=== PATIENT | female | born 1995 | race Caucasian/White ===

== ENCOUNTER 2019-08-01 10:13 | Emergency (ER) | payer BC, OTHER, SELFPAY ==
[2019-08-01 10:29] VITALS: BP 147/83; PULSE 92; RESP 18; TEMP 36.9; O2SAT 99
--- NOTE | 2019-08-01 10:47 | ED.GENADULT ---
HPI - General Adult General Chief complaint: Upper Respiratory Infection Stated complaint: Sore throat Time Seen by Provider: 08/01/19 10:47 Source: patient Mode of arrival: ambulatory Limitations: no limitations History of Present Illness HPI narrative: 23-year-old female patient presents to the [facility] with complaints of sore throat x5 days. Patient states that she has had pain with swallowing. Patient denies any fevers but states she has been taking some baby aspirin for the pain. Denies any runny nose that she is aware of. Patient states that she does feel like sometimes that she has some drainage to the back of her throat. Patient states she has had a slight dry cough. Denies any chest pain or shortness of breath. Denies any abdominal pain, nausea, vomiting or diarrhea. Denies any current at this time. Related Data Home Medications Medication Instructions Recorded Confirmed acyclovir 400 mg PO BID PRN 08/01/19 08/01/19 norethindrone-e.estradiol-iron 1 tablet PO DAILY 08/01/19 08/01/19 [Microgestin FE 05/08 (28)] Allergies Allergy/AdvReac Type Severity Reaction Status Date / Time No Known Allergies Allergy Verified 08/01/19 10:30 Review of Systems Review of Systems: Narrative: CONSTITUTIONAL: Denies fever, chills, or sweats. EYES: Denies visual changes, redness, or discharge. ENT: deneis rhinorrhea, congestion, positive sore throat, deneis otalgia. CARDIOVASCULAR: Denies chest pain, palpitations, or edema. RESPIRATORY: Denies cough or dyspnea. GASTROINTESTINAL: Denies abdominal pain, nausea, vomiting, or diarrhea. GENITOURINARY: Denies dysuria or hematuria. SKIN: Denies rash or itching. MUSCULOSKELETAL: Denies back pain, joint pain, or myalgia. NEUROLOGIC: Denies headache, numbness, or weakness. PSYCHIATRIC: Denies anxiety or depression. PMFSH Comments At the time of my signature I agree with nursing past medical history, surgical, social, and family history. There is no relevant family history pertinent to the presenting complaint. Exam Narrative: Exam Narrative: GENERAL: Well-appearing, well-nourished, and in no acute distress. HEAD: Normocephalic, atraumatic. EYES: PERRLA and EOMI. ENT: Nares With erythema and edema bilaterally, no active rhinorrhea or epistaxis. Mucous membranes moist.Posterior pharynx with some erythema and 2+ tonsil enlargement. No exudates or lesions present. There is some fluid noted behind bilateral TMs are not examined. NECK: Supple. No lymphadenopathy CHEST: Clear to auscultation. No respiratory distress. HEART: Regular rate and rhythm. No murmur heard. Normal peripheral pulses. ABDOMEN: Soft, nontender, nondistended, normal active bowel sounds. EXTREMITIES: Normal range of motion. No edema. SKIN: Warm, dry, no rash. NEURO: No focal deficits. Alert and oriented x3. Course Vital Signs Vital signs: Vital Signs Temperature 36.9 C 08/01/19 10:29 Pulse Rate 92 08/01/19 10:29 Respiratory Rate 18 08/01/19 10:29 Blood Pressure 147/83 H 08/01/19 10:29 Pulse Oximetry 99 08/01/19 10:29 Temperature 36.9 C 08/01/19 10:29 Pulse Rate 92 08/01/19 10:29 Respiratory Rate 18 08/01/19 10:29 Blood Pressure 147/83 H 08/01/19 10:29 Pulse Oximetry 99 08/01/19 10:29 Vital signs reviewed The patient has been informed that they may have pre-hypertension or Hypertension based on a BP reading in the department. I recommend that the patient call the primary care provider listed on their discharge instructions or a physician of their choice this week to arrange follow up for further evaluation of possible pre-hypertension or Hypertension Medical Decision Making Differential Diagnosis Differential Diagnosis: Differential diagnosis: Viral pharyngitis, pharyngitis, group A strep, infectious mononucleosis, gonococcal pharyngitis, exudative pharyngitis, oral candidiasis. Chronic allergies, postnasal drip, GERD, abscess formation, but glottitis, retropha
== END 2019-08-01 11:00 | disposition home or self-care (01) ==
PROVIDERS: Emergency Provider Nurse Practitioner Family
DX: H93.8X3 Other specified disorders of ear, bilateral (principal); J02.9 Acute pharyngitis, unspecified; J30.2 Other seasonal allergic rhinitis
CPT/HCPCS: 87081; 87880; 99213; G0463

== ENCOUNTER 2021-01-30 10:00 | Emergency (ER) | payer BC, MEDICAID, SELFPAY ==
[2021-01-30 10:06] VITALS: BP 133/82; PULSE 95; RESP 20; TEMP 36.8; O2SAT 100
--- NOTE | 2021-01-30 10:12 | ED.SKABFB ---
HPI - Skin/Abscess/Foreign Bdy General Chief complaint: Skin/Abscess/Foreign Body Stated complaint: spider bites Time Seen by Provider: 01/30/21 10:10 Source: patient and RN notes reviewed Mode of arrival: ambulatory Limitations: no limitations History of Present Illness HPI narrative: 25-year-old female presents to the [facility] with complaints of bites to bilateral arms after camping in a cabin on Wednesday and Wednesday. Red raised areas without signs of infection. No fevers. Has been scratching bug bites with multiple areas of scabbing noted. Related Data Home Medications Medication Instructions Recorded Confirmed sertraline mg 01/30/21 01/30/21 Allergies Allergy/AdvReac Type Severity Reaction Status Date / Time No Known Allergies Allergy Verified 08/01/19 10:30 Review of Systems Review of Systems: All systems reviewed & are unremarkable except as noted in HPI and below Constitutional: Constitutional: Reports no additional constitutional complaints, Denies chills and Denies fever(s) Eyes: Eyes: Reports no additional eye complaints ENT: Reports system reviewed and no additional complaints, except as documented Cardiovascular: Cardiovascular: Reports no additional cardiovascular complaints and Denies chest pain Respiratory: Respiratory: Reports no additional respiratory complaints, Denies cough and Denies dyspnea Gastrointestinal: Gastrointestinal: Reports no additional gastrointestinal complaints and Denies abdominal pain Musculoskeletal: Musculoskeletal: Reports no additional musculoskeletal complaints Integumentary/Breasts: Skin/Breast: Reports as per HPI Comments: Multiple insect bites bilateral arms, right ear, left ring finger Neurologic: Reports system reviewed and no additional complaints, except as documented Psychiatric: Psychiatric: Reports no additional psychiatric complaints Allergic/Immunologic: Allergic/Immunologic: Reports no additional allergic/immunologic complaints [facility] Past Medical History Medical History Anxiety and depression Surgical History Surgical History (Updated 01/30/21 @ 18:06 by Shi Hunt) No significant past surgical history Social History Social History (Updated 01/30/21 @ 18:06 by Shi Hunt) Living arrangements: with family Gender identity (if verbalized by the patient): Female Comments At the time of my signature, I reviewed and agree with the nursing past medical, surgical, social, and family history. There is no relevant family history pertinent to the patient complaint. Exam Const: General: healthy appearing, no acute distress and alert Nutritional Appearance: obese Orientation/consciousness: patient oriented x3 HENMT: Head: normal to inspection Eyes: Pupils: Equal, round and reactive pupils present Neck: Neck: normal visual inspection, no lymphadenopathy and no meningeal signs Chest: Chest palpation & inspection: normal inspection of the chest Resp: Effort & Inspection: normal respiratory effort Auscultation: clear to auscultation bilaterally Cardio: Rate: regular rate Rhythm: regular rhythm : General: Yes no CVA tenderness Back/Spine/Pelvis: Back: no CVA tenderness Skin: General skin exam: normal color Other: Multiple insect bites bilateral arms, right ear, left ring finger all are pink, mildly raised. Patient describes as itching. No signs of significant infection Neuro: General: patient oriented x3, moves all extremities, no meningeal signs and no focal motor deficits Cranial nerves: Yes Nystagmus not present Speech: normal speech Gait exam (Neuro): Normal gait present Extrem: General: normal to inspection and no pedal edema Psych: Appearance: grossly normal and well kempt Mental Status: mental status grossly normal Affect: normal affect Attitude: cooperative Thought content: Yes Normal thought content present Course Course Emergency Course: Discharge instr
== END 2021-01-30 10:30 | disposition home or self-care (01) ==
PROVIDERS: Emergency Provider Nurse Practitioner
DX: S40.862A Insect bite (nonvenomous) of left upper arm, initial encounter (principal); S40.861A Insect bite (nonvenomous) of right upper arm, initial encounter; S00.461A Insect bite (nonvenomous) of right ear, initial encounter; S60.465A Insect bite (nonvenomous) of left ring finger, initial encounter; W57.XXXA Bitten or stung by nonvenomous insect and other nonvenomous arthropods, initial encounter; F41.9 Anxiety disorder, unspecified; F32.A Depression, unspecified
CPT/HCPCS: 99213; G0463

== ENCOUNTER 2023-02-25 10:29 | Emergency (ER) | payer BC, MEDICAID, SELFPAY ==
--- NOTE | ~2023-02-25 | XR_ITS ---
Right Shoulder Technique: AP and scapular Y views were obtained. Clinical History: Pain Findings: No fracture or dislocation is seen. Osseous alignment is anatomic. The glenohumeral and acr omioclavicular joint spaces are preserved. Soft tissues are unremarkable. Impression: Unremarkable right shoulder radiographs. Reviewed, dictated and finalized at [facility]. RANCE REPRESENTATIVE Impression: Unremarkable right shoulder radiographs.
--- NOTE | 2023-02-25 10:34 | ED.UPPEXIN ---
HPI - Extremity Injury (Upper) General Chief Complaint: Extremity Injury, Upper Stated Complaint: Right Shoulder Pain Time Seen by Provider: 02/25/23 10:36 Source: patient Mode of arrival: ambulatory Limitations: no limitations History of Present Illness HPI narrative: Aurora is a 27-year-old female patient presenting to the clinic today with complaints of right shoulder pain that has been coming gradually worse over the last 4 days. She reports full last 2 years she has had some discomfort in her shoulder and she is usually able to pop her shoulder and feel relief. Related Data Home Medications Medication Instructions Recorded Confirmed No Home Medications 02/25/23 02/25/23 Allergies Allergy/AdvReac Type Severity Reaction Status Date / Time No Known Allergies Allergy Verified 02/25/23 10:43 Review of Systems Review of Systems: Pertinent positives per HPI. Patient denies any fever, chills, rash, headache, visual changes, dizziness, cough, runny nose, sore throat, shortness of breath, chest pain, palpitations, nausea, vomiting, diarrhea, constipation, abdominal pain, or any urinary issues. PMFSH Past Medical History Medical History Anxiety and depression Surgical History Surgical History No significant past surgical history Social History Social History Living arrangements: with family Gender identity (if verbalized by the patient): Female Comments At the time of my signature, I reviewed and agree with the nursing past medical, surgical, social, and family history. There is no relevant family history pertinent to the patient complaint. Exam Narrative: General: Well-developed, well nourished, in no apparent distress Head: Normocephalic, atraumatic. Cardio: Regular rate and rhythm, s1 and s2 normal, no murmur appreciated. Resp: Clear to auscultation bilaterally, no rhonchi, rales, wheezing or rubs. Musculoskeletal: No deformity, tender to palpation over the anterior and posterior shoulder, pain with empty can and full can testing, unable to lift right shoulder above head without significant pain, positive Ma test, grossly normal range of motion, muscle strength strong and equal, peripheral pulse strong, no edema, no cyanosis, normal gait and station Course Course Emergency Course: Portions of this record may have been created with voice recognition software. Level of Care: Express Care Visit Vital Signs Vital signs: Vital signs reviewed MDM - Extremity Injury (Upper) MDM Narrative Medical decision making narrative: At the time of visit patient is resting comfortably on the exam table. Right shoulder x-ray was performed and was negative for any sign of fracture or malalignment. I suspect patient has right shoulder strain. Supportive measures were discussed with the patient she voiced understanding discharge instructions and agrees to treatment plan. Differential Diagnosis Differential diagnosis: Likely dislocation of shoulder and other (Shoulder strain, shoulder contusion, clavicle fracture, humeral fracture, AC separation) Imaging Data Radiologist's impression: ITS Impressions Shoulder X-Ray 02/25/23 11:06 Impression: Unremarkable right shoulder radiographs. Discharge Plan Discharge Clinical Impression: Strain of right shoulder Qualifiers: Encounter type: initial encounter Qualified Code(s): S46.911A - Strain of unspecified muscle, fascia and tendon at shoulder and upper arm level, right arm, initial encounter Patient Disposition: Home, Self-Care Condition: Stable Instructions: Antibiotic Form, Shoulder Sprain (ED) Additional Instructions: X-ray of the right shoulder was performed and is negative for any sign of fracture or malalignment. I suspect patient has a r
[2023-02-25 10:37] VITALS: BP 129/86; PULSE 79; RESP 16; TEMP 36.8; O2SAT 98
== END 2023-02-25 11:16 | disposition home or self-care (01) ==
PROVIDERS: Emergency Provider Nurse Practitioner Family
DX: S46.911A Strain of unspecified muscle, fascia and tendon at shoulder and upper arm level, right arm, initial encounter (principal); X58.XXXA Exposure to other specified factors, initial encounter
CPT/HCPCS: 73030; 99213; A4565; G0463

== ENCOUNTER 2023-07-12 11:47 | Emergency (ER) | payer BC, MEDICAID, SELFPAY ==
[2023-07-12 11:57] VITALS: BP 143/92; PULSE 112; RESP 18; TEMP 36.7; O2SAT 96
--- NOTE | 2023-07-12 11:59 | ED.URI ---
HPI - URI/Sore Throat General Chief Complaint: Upper Respiratory Infection Stated Complaint: Sore Throat History of Present Illness HPI Narrative: 27 y/o female presented for c/o sore throat, x3 weeks. States at onset the pain was severe, with painful swallow. Endorses the pain is not as severe but tonsils have been getting bigger in size over the past few weeks. Endorses at times trouble swallowing solid foods but is able to maintain her secretions. Denies wheezing or difficulty talking at this time. Taking ibuprofen, tylenol. Denies headache, cough, n/v/d/f/c. Related Data Allergies Allergy/AdvReac Type Severity Reaction Status Date / Time No Known Allergies Allergy Verified 02/25/23 10:43 Review of Systems Review of Systems: CONSTITUTIONAL: Denies body aches, fever, chills, or sweats. EYES: Denies visual changes, redness, or discharge. ENT: reports sore throat Denies rhinorrhea, congestion, or otalgia. CARDIOVASCULAR: Denies chest pain, palpitations, or edema. RESPIRATORY: Denies dyspnea. GASTROINTESTINAL: Denies abdominal pain, nausea, vomiting, or diarrhea. SKIN: Denies rash, itching, or wounds. MUSCULOSKELETAL: Denies back pain, joint pain, or myalgia. NEUROLOGIC: Denies headache PMFSH Past Medical History Medical History Anxiety and depression Surgical History Surgical History No significant past surgical history Social History Social History Living arrangements: with family Gender identity (if verbalized by the patient): Female Exam Narrative: GENERAL: well-appearing, no acute distress. EYES: conjunctivae clear ENT: Mucous membranes moist. TMs pearly fajardo with normal light reflex bilaterally; no tragal tenderness. Oropharynx erythematous with Tonsils enlarged 3+ symmetrical, with exudate. No drooling, no hoarseness, no trismus, uvula midline. No tripod positioning, hot potato voice, or soft palate swelling. NECK: Supple. No lymphadenopathy, no induration below mandible. CHEST: Clear to auscultation, breath sounds equal. No respiratory distress, speaks in full sentences. HEART: Regular rate and rhythm. No murmur heard. SKIN: Warm, dry, no rash. NEURO: Alert and oriented x3. Course Course Emergency Course: Patient is aware of diagnosis, understands and agrees to treatment plan. Anticipatory guidance given. Patient agrees to follow-up as directed and is aware of reasons to seek care at the emergency department. Portions of this record may have been created with voice recognition software Level of Care: Express Care Visit Vital Signs Vital signs: Vital Signs Temperature 98.0 F 07/12/23 11:57 Pulse Rate 112 H 07/12/23 11:57 Respiratory Rate 18 07/12/23 11:57 Blood Pressure 143/92 H 07/12/23 11:57 Pulse Oximetry 96 07/12/23 11:57 Oxygen Delivery Room Air 07/12/23 11:57 Temperature 98.0 F 07/12/23 11:57 Pulse Rate 112 H 07/12/23 11:57 Respiratory Rate 18 07/12/23 11:57 Blood Pressure 143/92 H 07/12/23 11:57 Pulse Oximetry 96 07/12/23 11:57 Oxygen Delivery Room Air 07/12/23 11:57 MDM - URI/Sore Throat MDM Narrative Medical decision making narrative: POS strep result reviewed with pt. IM SoluMedrol given for tonsillitis. Nontoxic appearance. Patient appears euvolemic, no trismus or airway compromise. Able to tolerate PO. Given History and Exam I have low suspicion for peritonsillar abscess, retropharyngeal abscess, Ludwigs, Epiglottitis or Bacterial Tracheitis, EBV. Discussed at length s/s to go to the ER. Advise supportive treatments. Patient is appropriate for outpatient treatment and follow-up. Differential Diagnosis Differential diagnosis: Likely upper respiratory infection, viral infection, influenza and pharyngitis Discharge Plan Discharge Clinical Impression:
[2023-07-12] MEDS: methylPREDNISolone SOD SUCC 125 MG VIAL IM (12:15)
== END 2023-07-12 12:35 | disposition home or self-care (01) ==
PROVIDERS: Emergency Provider Nurse Practitioner Family
DX: J02.0 Streptococcal pharyngitis (principal)
CPT/HCPCS: 87880; 96372; 99213; G0463; J2930

== ENCOUNTER 2024-10-04 16:31 | Emergency (ER) | payer BC, MEDICAID, SELFPAY ==
--- NOTE | ~2024-10-04 | XR_ITS ---
HISTORY: medial pain/ swelling x10 days. no injury COMPARISON: None TECHNIQUE: 3 views of the right ankle were performed FINDINGS: No acute fracture or dislocation. Anteromedial soft tissue swelling The ankle mortise is preserved. Bone mineralization is age-appropriate. IMPRESSION: Anteromedial soft tissue swelling without acute fracture or dislocation. Given the lack of plain film findings, would recommend MRI examination of the right ankle for further evaluation. Reviewed, dictated and finalized at location A. IMPRESSION: Anteromedial soft tissue swelling without acute fracture or disloc ation. Given the lack of plain film findings, would recommend MRI examination of the r ight ankle for further evaluation.
[2024-10-04 16:44] VITALS: BP 147/100; PULSE 105; RESP 20; TEMP 36.6; O2SAT 99
--- NOTE | 2024-10-04 17:03 | ED.LOWEXIN ---
HPI - Extremity Injury (Lower) General Chief Complaint: Extremity Injury, Lower Stated Complaint: Right Ankle Injury Time Seen by Provider: 10/04/24 16:58 Source: patient and RN notes reviewed Mode of arrival: ambulatory Limitations: no limitations History of Present Illness HPI Narrative: Patient presents today with a 10 day history of right medial ankle pain and swelling. States she woke up with this pain from sleep. Denies injury or trauma. Currently rates her pain 5/10 which radiates to the posterior calf. She has tried ibuprofen and ice as well as an ankle brace without relief. Pain increases with movement and weight-bearing. Denies any recent travel, immobilization, surgeries. Denies history of PE or DVT. Related Data Home Medications ?Medication ?Instructions ?Recorded ?Confirmed ?Last Taken ?Type No Home Medications 10/04/24 10/04/24 Unknown History Allergies Allergy/AdvReac Type Severity Reaction Status Date / Time No Known Allergies Allergy Verified 10/04/24 16:44 Review of Systems Review of Systems: CONSTITUTIONAL: Denies body aches, fever, chills, or sweats. EYES: Denies visual changes, redness, or discharge. ENT: Denies rhinorrhea, congestion, sore throat, or otalgia. CARDIOVASCULAR: Denies chest pain, palpitations, or edema. RESPIRATORY: Denies cough or dyspnea. GASTROINTESTINAL: Denies abdominal pain, nausea, vomiting, or diarrhea. GENITOURINARY: Denies dysuria or hematuria. SKIN: Denies rash, itching, or wounds. MUSCULOSKELETAL: + right ankle pain and swelling NEUROLOGIC: Denies headache, numbness, tingling, or weakness. PSYCH: Denies depression or anxiety. [facility] Past Medical History Medical History Anxiety and depression Surgical History Surgical History No significant past surgical history Social History Social History Living arrangements: with family Gender identity (if verbalized by the patient): Female Comments At time of signature, I have reviewed and agree with nursing past medical, surgical, social and family history unless otherwise noted. Please see nursing chart for further information. There is no relevant family history pertinent to the presenting complaint Exam Narrative: GENERAL: Well-appearing, well-nourished, and in no acute distress. HEAD: Normocephalic, atraumatic. EYES: EOMI. No redness or drainage. Conjunctivae normal. ENT: Mucous membranes pink and moist. NECK: Normal AROM. CHEST: No respiratory distress. EXTREMITIES: Right ankle: Tenderness and mild edema to the medial ankle that extends posteriorly to the mid calf. Pain elicited to the calf with flexion of the ankle. There is no swelling or redness to the calf. No redness to the ankle or foot. Distal sensation intact. Capillary refill normal. Pedal pulse is strong. Full range of motion of the ankle with increased pain. No color change of the leg or foot. SKIN: Warm, dry, no rash. Capillary refill normal. Normal skin turgor. NEURO: No focal deficits. Alert and oriented x3. Gait steady. PSYCH: Normal affect. No signs of depression or anxiety. Course Course Level of Care: Express Care Visit Vital Signs Vital signs: Vital Signs Temperature 98 F 10/04/24 16:44 Pulse Rate 105 H 10/04/24 16:44 Respiratory Rate 20 10/04/24 16:44 Blood Pressure 147/100 H 10/04/24 16:44 Pulse Oximetry 99 10/04/24 16:44 Oxygen Delivery Room Air 10/04/24 16:44 Temperature 98 F 10/04/24 16:44 Pulse Rate 105 H 10/04/24 16:44 Respiratory Rate 20 10/04/24 16:44 Blood Pressure 147/100 H 10/04/24 16:44 Pulse Oximetry 99 10/04/24 16:44 Oxygen Delivery Room Air 10/04/24 16:44 Reviewed MDM - Extremity Injury (Lower) MDM Narrative Medical decision making narrative: Ankle x-ray negative for acute findings. As patient has not had any recent injury or trauma to the area, recommend transfer to the ER to rule out DVT. Wells score 1. Patient declines ER transfer today. Discussed risks of DVT and uncertainty of diagnosis. Differential Diagnosis Differential diagnosis: Likely ankle sprain and strain, ankle fracture and other (DVT) Imaging Data Radiologist's impression: ITS Impressions Ankle X-Ray 10/04/24 17:35 IMPRESSION: Anteromedial soft tissue swelling without acute fracture or dislocation. Given the lack of plain film findings, would recommend MRI examination of the right ankle for further evaluation. Critical Care Time Critical Care Time Critical Care Time: No Discharge Plan Discharge Clinical Impression: Ankle pain, right Patient Disposition: Home Condition: Stable Instructions: Ankle Sprain (DC), Deep Vein Thrombosis (DC) Additional Instructions: Your xray is negative today. You have declined ER transfer today for further evaluation of your ankle pain and swelling. Elevate and ice your ankle. Take tylenol or motrin for pain. Follow up with a PCP or ortho if symptoms persist. As discussed, please go to the ER immediately if symptoms worsen to include shortness of breath or chest pain. Your blood pressure was elevated above 120/80 today at Urgent Care. This puts you above the threshold for follow up. Please schedule a followup visit with your personal physician as soon as possible, for further evaluation and treatment. Even blood pressure exceeding 120/80 may indicate pre-hypertension. Patient Language: Albanian Prescriptions: No Action No Home Medications Follow-up/Referrals: PHYSICIAN,[employer] [Primary Care Provider] - Time of Disposition: 17:58
--- OUTSIDE RECORDS SUMMARY | 2024-10-04 17:43 | XMS_ITS | Encounter Summary ---
Author Organization [facility] Address [address] [place] [address] Phone Care Team Providers Care Buyer Renter Name Role Phone Gerry Stockton MD Primary Care Provider Encounter Details Date Type Department Care Team (Late st Contact Info) Description 07/08/2020 Orders Only [facility] [address] [place] [id number] Scanning, Provider Social History Tobacco Use Types Packs/Day Years Used Date Smoking Tobacco: Never Smokeless Tobacco: Former Quit: 08/24/2017 Alcohol Use Standard Drinks/Week Comments No 0 (1 standard drink = 0.6 oz pur e alcohol) Comments Yes Sex and Gender Information Value Date Recorded Sex Assigned at Not on file Legal Sex Female 3:26 PM HAND BOX COVERER Gender Identity Female 04/26/2024 4:15 PM HAND BOX COVERER Sexual Orientation Straight 06/02/2020 3: 08 PM HAND BOX COVERER documented as of this encounter Plan of Treatment Not on file documented as of this encounter Procedures Procedure Name Priority Date/Time Associated Diagnosis Comments SCAN - LABS 07/08/2020 documented in this encounter Results * SCAN - LABS (07/08/2020) us Provider Scanning Final Result documented in this encounter Visit Diagnoses Not on filedocumented in this encounter Care Teams Buyer Renter Relationship Specialty Start Date End Date Gerry Stockton MD [address] [place] [address] PCP - General 06/30/19 documented as of this encounter
--- OUTSIDE RECORDS SUMMARY | 2024-10-04 17:43 | XMS_ITS | Data Portability ---
Author Organization [facility] [place] [facility] Address [address] [place] [address] Assessment No assessment recorded. Plan of Treatment Reminders Order Date Submit Date Provider Last Modified By Organization Details Last Modified Time Details Appointments None recorded. Lab test, urine 2016 017 [email or web address] In-Office Order, Internal Use Only DO Not Attach Compendium DO Not Attach Compendium, Do Not Delete/merge, [id number] 7 18:13:34 HIV 1+2 AB + HIV 1 p24 Ag, qualitative immunoassay , serum 2016 017 [facility], [address] [place] [address], [facility] [address], [place], [address], 7 11:10:43 hsv (1+2) igg, serum 2016 017 [facility], [address] [place] [address], [facility] [address], [place], [address], 7 11:10:42 RPR (rapid plasma reagin), serum 2016 017 [facility], [address] [place] [address], [facility] [address], [place], [address], 7 11:10:42 HBsAg (hepatitis B surface Ag), EIA, serum 2016 017 [facility], [address] [place] [address], [facility] [address], [place], [address], 7 11:10:44 hepatitis C Ab, signal-to-c utoff, serum or plasma 2016 017 [facility], [address], [address], [place], [address], 7 11:10:43 bacterial vaginosis + vaginitis panel, vaginal 2016 017 [facility], [address] [facility], [address], [place], [address], 7 16:18:07 test, urine 2015 016 mpass In-Office Order, Internal Use Only DO Not Attach Compendium DO Not Attach Compendium, Do Not Delete/merge, [id number] 6 11:41:30 bacterial vaginosis + vaginitis panel, vaginal 2015 016 [facility], [address] [facility], [address], [place], [address], 6 07:13:28 Referral None recorded. Procedures None recorded. Surgeries None recorded. Imaging None recorded. Medication Orders medroxyprog esterone 150 mg/mL intramuscul ar suspension 2016 017 [id number], [address], [place], [place], [id number], 7 14:39:47 medroxyprog esterone 150 mg/mL intramuscul ar suspension 2015 016 [facility] Not available 7 14:39:47 Depo-Slot Operations Director a 150 mg/mL intramuscul ar suspension 2015 016 [id number], [address], [place], [place], [id number], 7 14:39:47 Patient TargetsNo targets recorded. Patient Instructions Encounter Date Encounter Id Patient Instructions Last Modified By Organization Details Last Modified Time 12/10/2015 [id number] RTC 12/10 for DMP A with negative UPT mpass Not available 12/10/2015 16:13:18 Not a good pill taker. Wants depo. Discussed risks/benefits/si de effects of depo provera. mpass Not available 12/10/2015 16:13:17 12/11/2015 [id number] Encouraged consistent condom use. mpass Not available 12/11/2015 10:47:01 06/08/2016 [id number] RTC in 3 months for DMPA. mpass Not available 06/08/2016 15:12:23 07/03/2016 [id number] STD panel was sent. Patient was advised to abstain from alcohol, tobacco and drugs. Safe sex counseling was done. okolade Not available 07/03/2016 16:39:10 02/26/2017 [id number] secondary amenorrhea: care instructions [email or web address] Not available 02/26/2017 18:13:34 test was negative. Patient was reassured. [email or web address] Not available 02/26/2017 16:51:56 Reason for Referral None Reported. Results Created Date Observation Date Name Description Value Unit Range Abnormal Flag Note LastModifiedBy Organization Detail LastModifiedTime 02/27/20 17 02/26/2017 pregn navya test, urine HCG negati ve Not Available In-Office Order Internal Use Only DO Not Attach Compendium DO Not Attach Compendium, Do Not Delete/merge, [id number] 02/26/2017 14:40:34 12/11/19 16 12/11/2015 pregn navya test, urine HCG negati ve Not Available In-Office Order Internal Use Only DO Not Attach Compendium DO Not Attach Compendium, Do Not Delete/merge, [id number] 12/11/2015 09:50:57 12/10/19 16 12/12/2015 bacte rial vagin osis + vagin itis panel , vagin al trich vag by HANNY NEGATI VE negati ve Not Available [facility] ([facility]) [address], [place], [address], 12/14/2015 07:13:28 12/10/19 16 12/12/2015 bacte rial vagin osis + vagin itis panel , vagin al chlamydia trachomatis, HANNY NEGATI VE negati ve Not Available [facility] ([facility]) [address] [place], [address], 12/14/2015 07:13:28 12/10/19 16 12/12/2015 bacte rial vagin osis + vagin itis panel , vagin al neisseria gonorrhoeae, HANNY NEGATI VE negati ve Not Available [facility] ([facility]) [address] [place], [address], 12/14/2015 07:13:28 12/10/19 16 12/13/2015 bacte rial vagin osis + vagin itis panel , vagin al atopobium vaginae LOW - 0 score Not Available [facility] ([facility]) [address] [place] [address], [address], 12/14/2015 07:13:28 12/10/19 16 12/13/2015 bacte rial vagin osis + vagin itis panel , vagin al bvab 2 LOW - 0 score Not Available [facility] ([facility]) [address] [place] [address], [address], 12/14/2015 07:13:28 12/10/19 16 12/13/2015 bacte rial vagin osis + vagin itis panel , vagin al megasphaera 1 LOW - 0 score CALCU LATE TOTAL SCORE BY DEVONTE G THE 3 INDIV IDUAL BACTE RIAL VAGIN OSIS (BV) MARKE R SCORE S TOGET HER. TOTAL SCORE IS INTER PRETE D FOLLO WS: TOTAL SCORE 0-1: INDIC ATES THE ABSEN CE OF BV. TOTAL SCORE 2: INDET ERMIN ATE FOR BV. ADDIT IONAL CLINI JODI DATA SHOUL D BE EVALU ATED TO ESTAB MAC A DIAGN OSIS. TOTAL SCORE 3-6: INDIC ATES THE PRESE NCE OF BV. THIS TEST WAS DEVEL OPED AND ITS PERFO RMANC E IGNACIO CTERI STICS DETER MINED BY [employer]. IT HAS NOT BEEN CLEAR ED OR APPRO MIKE BY THE FOOD AND DRUG ADMIN ISTRA TION. THE FDA HAS DETER MINED THAT SUCH CLEAR ANCE OR APPRO DOMINGO IS NOT NECES RAMYA. Not Available [facility] ([facility]) [address] [place], [address], 12/14/2015 07:13:28 12/10/19 16 12/13/2015 bacte rial vagin osis + vagin itis panel , vagin al amrit albicans, HANNY POSITI VE negati ve abnormal Not Available [facility] ([facility]) [address] [place], [address], 12/14/2015 07:13:28 12/10/19 16 12/13/2015 bacte rial vagin osis + vagin itis panel , vagin al amrit glabrata, HANNY NEGATI VE negati ve THIS TEST WAS DEVEL OPED AND ITS PERFO RMANC E IGNACIO CTERI STICS DETER MINED BY [employer]. IT HAS NOT BEEN CLEAR ED OR APPRO MIKE BY THE FOOD AND DRUG ADMIN ISTRA TION. THE FDA HAS DETER MINED THAT SUCH CLEAR ANCE OR APPRO DOMINGO IS NOT NECES RAMYA. Not Available [facility] ([facility]) [address] [place], [address], 12/14/2015 07:13:28 07/04/19 17 07/04/2016 hsv (1+2) igg, serum hsv 1 IgG, type spec 46.40 index 0.00-0 .90 above high normal NEGAT DAISY <0.91 EQUIV OCAL 0.91 - 1.09 POSIT DAISY >1.09 NOTE: NEGAT DAISY INDIC ATES NO ANTIB ODIES DETEC ASA TO HSV-1 . EQUIV OCAL MAY SUGGE ST EARLY INFEC TION. IF CLINI DELANEY APPRO PRIAT E, RETES T AT LATER DATE. POSIT DAISY INDIC ATES ANTIB ODIES DETEC ASA TO HSV-1 . Not Available [facility] ([facility]) [address] [facility], [place], [address], 07/04/2016 11:10:42 07/04/19 17 07/04/2016 hsv (1+2) igg, serum hsv 2 IgG, type spec <0.91 index 0.00-0 .90 NEGAT DAISY <0.91 EQUIV OCAL 0.91 - 1.09 POSIT DAISY >1.09 NOTE: NEGAT DAISY INDIC ATES NO ANTIB ODIES DETEC ASA TO HSV-2 . EQUIV OCAL MAY SUGGE ST EARLY INFEC TION. IF CLINI DELANEY APPRO PRIAT E, RETES T AT LATER DATE. POSIT DAISY INDIC ATES ANTIB ODIES DETEC ASA TO HSV-2 . Not Available [facility] ([facility]) [address] [facility], [place], [address], 07/04/2016 11:10:42 07/04/19 17 07/04/2016 RPR (rapi d plasm a reagi n), serum RPR NON REACTI VE non reacti ve Not Available [facility] ([facility]) [address] [place], [address], 07/04/2016 11:10:42 07/04/19 17 07/04/2016 HIV 1+2 AB + HIV 1 p24 Ag, quali tativ e immun oassa y, serum HIV screen 4TH generation wrfx NON REACTI VE non reacti ve Not Available [facility] ([facility]) [address] [place], [address], 07/04/2016 11:10:43 07/04/19 17 07/03/2016 hepat itis C Ab, signa l-to- cutof f, serum or plasm a comment: COMMEN T NON REACT DAISY HCV ANTIB FRANK SCREE N IS CONSI STENT WITH NO HCV INFEC TION, UNLES S RECEN T INFEC TION IS SUSPE CTED OR OTHER EVIDE NCE EXIST S TO INDIC ATE HCV INFEC TION. Not Available [facility] ([facility]) [address] [facility], [place], [address], 07/04/2016 11:10:43 07/04/19 17 07/04/2016 hepat itis C Ab, signa l-to- cutof f, serum or plasm a HCV Ab <0.1 S/co_ ratio 0.0-0. 9 Not Available [facility] ([facility]) [address] [place], [address], 07/04/2016 11:10:43 07/04/19 17 07/04/2016 HBsAg (hepa titis B surfa ce Ag), EIA, serum HBsAg screen NEGATI VE negati ve Not Available [facility] ([facility]) [address] [place], [address], 07/04/2016 11:10:44 07/04/19 17 07/05/2016 bacte rial vagin osis + vagin itis panel , vagin al chlamydia trachomatis, HANNY NEGATI VE negati ve Not Available [facility] ([facility]) [address] [place], [address], 07/06/2016 16:18:07 07/04/19 17 07/05/2016 bacte rial vagin osis + vagin itis panel , vagin al neisseria gonorrhoeae, HANNY NEGATI VE negati ve Not Available [facility] ([facility]) [address] [place], [address], 07/06/2016 16:18:07 07/04/19 17 07/06/2016 bacte rial vagin osis + vagin itis panel , vagin al atopobium vaginae LOW - 0 score Not Available [facility] ([facility]) [address] [place], [address], 07/06/2016 16:18:07 07/04/19 17 07/06/2016 bacte rial vagin osis + vagin itis panel , vagin al bvab 2 LOW - 0 score Not Available [facility] ([facility]) [address] [place], [address], 07/06/2016 16:18:07 07/04/19 17 07/06/2016 bacte rial vagin osis + vagin itis panel , vagin al megasphaera 1 LOW - 0 score CALCU LATE TOTAL SCORE BY DEVONTE Vance THE 3 INDIV IDUAL BACTE RIAL VAGIN OSIS (BV) MARKE R SCORE S TOGET HER. TOTAL SCORE IS INTER PRETE D FOLLO WS: TOTAL SCORE 0-1: INDIC ATES THE ABSEN CE OF BV. TOTAL SCORE 2: INDET ERMIN ATE FOR BV. ADDIT IONAL CLINI JODI DATA SHOUL D BE EVALU ATED TO ESTAB MAC A DIAGN OSIS. TOTAL SCORE 3-6: INDIC ATES THE PRESE NCE OF BV. THIS TEST WAS DEVEL OPED AND ITS PERFO RMANC E IGNACIO CTERI STICS DETER MINED BY [employer]. IT HAS NOT BEEN CLEAR ED OR APPRO MIKE BY THE FOOD AND DRUG ADMIN ISTRA TION. THE FDA HAS DETER MINED THAT SUCH CLEAR ANCE OR APPRO DOMINGO IS NOT NECES RAMYA. Not Available [facility] ([facility]) [address] [facility], [place], [address], 07/06/2016 16:18:07 07/04/19 17 07/06/2016 bacte rial vagin osis + vagin itis panel , vagin al amrit albicans, HANNY NEGATI VE negati ve Not Available [facility] ([facility]) [address] [place], [address], 07/06/2016 16:18:07 07/04/19 17 07/06/2016 bacte rial vagin osis + vagin itis panel , vagin al amrit glabrata, HANNY NEGATI VE negati ve THIS TEST WAS DEVEL OPED AND ITS PERFO RMANC E IGNACIO CTERI STICS DETER MINED BY [employer]. IT HAS NOT BEEN CLEAR ED OR APPRO MIKE BY THE FOOD AND DRUG ADMIN ISTRA TION. THE FDA HAS DETER MINED THAT SUCH CLEAR ANCE OR APPRO DOMINGO IS NOT NECES RAMYA. Not Available [facility] ([facility]) [address] [facility] [place], [address], 07/06/2016 16:18:07 07/04/19 17 07/06/2016 bacte rial vagin osis + vagin itis panel , vagin al trich vag by HANNY NEGATI VE negati ve Not Available [facility] ([facility]) [address] [facility], [place], [address], 07/06/2016 16:18:07 Result Notes None recorded. Problems Name Problem SNOMED Code Status Onset Date Resolution Date Notes Provider Name and Address Organization Details Recorded Time Urine screening abnormal 655181874 Active MICHAEL [place], [place] - [facility] 6 09:50:54 Candidiasis of vagina 84033023 Active MICHAEL [place] - [facility] 6 08:47:03 Problem Notes None recorded. Procedures Surgical History Date Name Laterality Status Provider Name and Address Organization Details Recorded Time 7 Depo Injection completed Taylor Carpenter [place] - [facility] 017 14:20:14 6 Depo Injection completed Taylor Carpenter MA [place] - [facility] 016 10:01:23 Imaging Results None recorded. Procedure Notes None recorded. Medical Equipment None Reported. Allergies No known drug allergies Medications Name Sig Start Date Stop Date Status Note LastModified by Organization Details LastModified Time ondansetron odt 4 mg tbdp active Not Available Not Available Not Available amoxicillin 500 mg capsule active Not Available Not Available Not Available fluconazole 150 mg tablet Take 1 tablet every day by oral route for 1 day. 06/08 completed Not Available Not Available Not Available prednisone 20 mg tablet active Not Available Not Available Not Available acyclovir 400 mg tablet active Not Available Not Available Not Available sulfamethox azole 800 mg-trimetho prim 160 mg tablet active Not Available Not Available Not Available tramadol 50 mg tablet active Not Available Not Available No t Available amoxicillin 500 mg tablet active Not Available Not Available Not Available ofloxacin 0.3 % ear drops 02/26 completed Not Available Not Available Not Available cephalexin 500 mg capsule active Not Available Not Available Not Available ibuprofen 400 mg tablet active Not Available Not Available Not Available ibuprofen 600 mg tablet active Not Available Not Available Not Available medroxyprog esterone 150 mg/mL intramuscul ar suspension Inject 1 mL every 3 months by intramusc ular route. 02/26 completed Not Available Not Available Not Available naproxen 500 mg tablet 06/08 completed Not Available Not Available Not Available amoxicillin 875 mg-shalondaiu m clavulanate 125 mg tablet active Not Available Not Available Not Available Microgestin 05/08 (21) 1 mg-20 mcg tablet TAKE 1 TABLET BY MOUTH EVERY DAY active Not Available Not Available No t Available Vitals Date Recorded Body height Body weight Body mass index (BMI) Systolic blood pressure Diastolic blood pressure Provider Name and Address Organization Details Last Updated DateTime 06/08/2016 162.56 cm 46702.6 g 22.5 kg/m2 112 mm[Hg] 62 mm[Hg] Taylor Carpenter MA [facility] 7 14:00:40 Date Recorded Body height Body weight Body mass index (BMI) Systolic blood pressure Diastolic blood pressure Provider Name and Address Organization Details Last Updated DateTime 07/03/2016 162.56 cm 52474.52 g 21.8 kg/m2 142 mm[Hg] 67 mm[Hg] Maya Robledo MA [facility] 7 15:59:25 Date Recorded Body mass index (BMI) Body weight Body height Systolic blood pressure Diastolic blood pressure Provider Name and Address Organization Details Last Updated DateTime 12/10/2015 20.6 kg/m2 34397.08 44 g 162.56 cm 130 mm[Hg] 74 mm[Hg] Gloria Pederson [facility] 6 14:10:29 Date Recorded Body height Body weight Body mass index (BMI) Systolic blood pressure Diastolic blood pressure Provider Name and Address Organization Details Last Updated DateTime 12/11/2015 162.56 cm 33884.67 677 g 20.8 kg/m2 116 mm[Hg] 72 mm[Hg] Taylor Carpenter MA [facility] 6 10:01:23 Date Recorded Body height Body mass index (BMI) Body weight Systolic blood pressure Diastolic blood pressure Provider Name and Address Organization Details Last Updated DateTime 02/26/2017 162.56 cm 26.8 kg/m2 96858.41 g 122 mm[Hg] 80 mm[Hg] Taylor Carpenter MA [place] - [facility] 7 14:39:42 Social History Question Answer Notes LastModified by Organizat ion Details LastModified Time Tobacco Smoking Status Never Smoker Xin MICHAEL [place]on null, [place] - [facility] 01/09/2015 14:26:26 Animal Exposure? Yes Informat ion not available 01/17/2015 What Is Your Level Of Caffeine Consumption? Occasional Information not available 01/09/2015 How Much Tobacco Do You Chew? None Information not available 01/17/2015 What Type Of Diet Are You Following? REGULAR Information not available 01/17/2015 Have There Been Any Changes To Your Family Or Social Situation? Yes Step-gran dfather Information not available 01/17/2015 What Is The Fluoride Status Of Your Home? Fluoridated Information not available 01/17/2015 Are There Any Guns Present In Your Home? No Information not available 01/17/2015 What Is Your Home Situation? Both Parents Information not available 01/17/2015 Parent Involvement? Both Parents Involved Information not available 01/17/2015 Mosquito Repellent Used Routinely No Information not available 01/17/2015 What Was The Date Of Your Most Recent Tobacco Screening? 02/26/2017 Information not available 11/10/2018 What Is Your Parents' Marital Status? Information not available 01/17/2015 Pool Exposure Yes Information not available 01/17/2015 Do You Use Protection During Sex? Usually Information not available 01/17/2015 What Is Your Relationship Status? Single Information not available 01/09/2015 What Is The Name Of Your School? [employer] Information not available 01/17/2015 Do You Use Your Seat Belt Or Car Seat Routinely? Yes Information not available 01/17/2015 Are You Sexually Active? Yes Information not available 01/17/2015 Do You Have Any Siblings? 2 Information not available 01/17/2015 Do You Have Smoke And Carbon Monoxide Detectors In Your Home? Yes Information not available 01/17/2015 Are You Passively Exposed To Smoke? Yes Information not available 01/17/2015 How Much Tobacco Do You Smoke? No Information not available 01/17/2015 Do You Use Sunscreen Routinely? No Information not available 01/17/2015 Year In School 12 Informatio n not available 01/17/2015 Sex: Unknown Functional Status Question Answer Note LastModified by Organization D etails LastModified Time What is your level of alcohol consumption? None Information not available 01/09/2015 What is your exercise level? None Information not available 01/17/2015 Mental Status Question Answer Note LastModified by Organization D etails LastModified Time Are you or have you been involved with bullying? No Information not available 01/17/2015 Family History Relationship Description Onset Age of this Age Resolved Age Notes LastModified by Organization Details LastModified Time Maternal Grandmother Malignant tumor of breast knealma Not available 2015 09:50:56 Medical History Condition Response Other N High Blood Pressure N Blood Diseases N Breast Cancer N Depression N Blood Clots N Lung Disease N Developmental or Behavioral Disorders N Breast Problem N Premature N Anesthesia Complications N Headaches/Migraines N Anxiety Disorder N Muscle, Joint, or Bone Problems N Vision or Eye Problems N Arthritis N Head Injury/Concussion N Polyps N Infertility N Acid Reflux (GERD) N Cancer N Stroke N ADHD N Endometriosis N Bladder or Kidney Problems N High Cholesterol N Liver Disease N Fibromyalgia N Headaches N Kidney Disease N Heart Problems N Ear or Hearing Problems N Thyroid Problems N Kidney or Bladder Problems N GI Problems N Acne N Skin Problems N Eating Disorder N Anemia N Constipation N Ovarian Cancer N Diabetes N Bedwetting N Blood Transfusions N Seizures/Epilepsy N Heart Problems/Murmur N Abuse/Domestic Violence N Allergies N Asthma N Hepatitis N Heart Disease N Pre-Eclampsia N Hypertension N Osteoporosis N Chicken Pox N Autism Spectrum Disorder (ASD) N Gynecological History Statement/Question Response Flow Heavy Frequency of Cycle (Q days) Sexually Active? Y Menses Monthly N STIs/STDs Y Date of Last Pap Smear Sexual Problems? N Duration of Flow (days) Current Control Method Depo-Slot Operations Director a Age at Menarche 12 LMP Approximate Obstetrics History GPAL:G 0 P 0 0 0 0 Immunizations Vaccine Type Date Status Note Provider Oswald rod and Address Organization Details Recorded Time HPV, quadrivalent 2 completed Rakel Barryton, [employer] [place], [place] - [facility] 01/16/2015 10:03:12 IPV 3 completed Rakel Sevilla, [employer] [place] [facility] 01/16/2015 10:03:12 Hib, unspecified formulation 8 completed Rakel Roel, [employer] [place] [facility] 01/16/2015 10:03:12 meningococcal MCV4, unspecified formulation 2 completed Rakel [place], [employer] [place] [facility] 01/16/2015 10:03:12 DTaP 8 completed Rakel [place], [employer] [place] [facility] 01/16/2015 10:03:12 IPV 3 completed Rakel [place], [employer] [place] [facility] 01/16/2015 10:03:12 DTaP 8 completed Rakel [place], [employer] [place] [facility] 01/16/2015 10:03:12 IPV 8 completed Rakel [place], [employer] [place] [facility] 01/16/2015 10:03:12 DTaP 8 completed Rakel [place], [employer] [place] [facility] 01/16/2015 10:03:12 varicella 0 completed Rakelrosa [place], [employer] [place] [facility] 01/16/2015 10:03:12 MMR 3 completed Rakel [place], [employer] [place] [facility] 01/16/2015 10:03:12 HPV, quadrivalent 3 completed Rakel [place], [employer] [place] [facility] 01/16/2015 10:03:12 Hib-Hep B 8 completed Rakel [place], [employer] [place] [facility] 01/16/2015 10:03:12 DTaP 9 completed Rakel [place], [place] [facility] 01/16/2015 10:03:12 Hep B, adolescent or pediatric 8 completed Rakel Sevilla, [employer] [place] [facility] 01/16/2015 10:03:12 HPV, quadrivalent 2 completed Rakel Barryton, [place] [place] [facility] 01/16/2015 10:03:12 MMR 9 completed Rakel Barryton, [employer] [place] [facility] 01/16/2015 10:03:12 MMR 3 completed Rakel [place], [place] [place] [facility] 01/16/2015 10:03:12 IPV 9 completed Rakel [place]ton, [place] [place] [facility] 01/16/2015 10:03:12 Hib, unspecified formulation 8 completed Rakel [place]ton, [employer] [place] [facility] 01/16/2015 10:03:12 DTaP 3 completed Rakel [place], [place] [facility] 01/16/2015 10:03:12 varicella 2 completed Rakel [place], [employer] [place] [facility] 01/16/2015 10:03:12 IPV 8 completed Rakel [place]ton, [employer] [facility] 01/16/2015 10:03:12 Hep B, adolescent or pediatric 8 completed Rakel [place]ton, [place] [place] [facility] 01/16/2015 10:03:12 Tdap 2 completed Rakel [place]ton, [employer] [place] [facility] 01/16/2015 10:03:12 Influenza, split virus, quadrivalent, PF 5 completed Not Available [facility] 05/06/2019 02:48:35 Meningococcal MCV4O 5 completed Not Available [facility] 05/06/2019 02:45:32 Past Encounters Encounter ID Performer Location Encounter Start Date Encounter Closed Date Diagnosis/Indication Diagnosis SNOMED-CT Code Diagnosis ICD10 Code Diagnosis Note [id number] MD Venu Schulz [facility] ([facility]) [address] [facility] [address] [place] [address] 01/09/2015 13:40:19 01/10/2015 08:02:01 Uses contraception [id number] MD Venu Sahu [facility] (Peds) [address] [place] [address] 01/17/2015 09:50:15 01/17/2015 11:27:59 Well child 281604103 Z00.129 Urine scre ening abnormal 470540383 R82.90 [id number] Neeta Ortiz [facility] ([facility] [address]) [address] [facility] [place] [address] 12/10/2015 13:59:53 12/11/2015 10:13:57 Gynecologic examination 95120145 Z01.419 Uses depot contraception 956812606 Z30.013 [id number] Neeta Ortiz [facility] ([facility] [address]) [address] [facility] [place] [address] 12/11/2015 09:48:31 12/11/2015 11:24:34 Uses depot contraception [id number] Z30.681 [id number] Neeta Ortiz [facility] ([facility] [address]) [address] [facility] [place] [address] 06/08/2016 13:46:03 06/08/2016 15:27:31 Uses depot contraception 279254029 Z30.684 [id number] MD Venu Jenkins ([facility] [address]) [address] [facility] [place] [address] 07/03/2016 15:49:26 07/03/2016 16:40:02 High risk sexual behavior 284179163 Z72.51 [id number] MD Venu Jenkins ([facility] [address]) [address] [facility] [place] [address] 02/26/2017 14:33:50 02/26/2017 16:52:19 Amenorrhea [id number] N91.2 Health Concerns Section Related Observation LastModified by Organization Detai ls LastModified Time None Recorded Concern Status LastModified by Organization Details LastModified Time None Recorded Advance Directives Directive None Recorded Payers Insurance Date Sequence Insurance Name Policy Number Policy Roberts Covered Member ID Roberts Member ID Guarantor Name 03/10/2021 1 [facility] (MEDICAID HMO) Aurora Patrick [id number] Aurora Vyas 03/10/2021 1 [facility] (MEDICAID HMO) Aurora Patrick [id number] Aurora Vyas Notes Date Note Type Note Provider Name and Address Organization Details Recorded Time 12/10/2015 text/html Annual GYNReport ed bypatient.History: no gynecologic complaints Menstrual cycle:Normal menses Urinary symptoms:No hematuria; No incontinence Vulva:No genital lesion Vagina:Normal vaginal discharge Breast:No breast pain; No breast lump; No nipple discharge Current Contraception:want s DMPA. Sexual complaints:No sexual complaints; No pain during intercourse; Normal libido Menopausal Symptoms:No menopausal symptoms; Normal vaginal lubrication Psychological symptoms:No depression; No anxiety; No PMDD Preventive measures:Encourage self breast examination; Encourage regular exercise; Encourage no tobacco use LIEN Gordon Attn: [address] [place], [address], [facility] 12/10/2015 16:13:27 07/03/2016 text/html Patient is here for STD check. Patient endorses vaginal discharge. Patient denies abdominal pain or fever. Eda Robertson MD Attn: [address] [place], [address], [facility] 07/03/2016 16:39:55 02/26/2017 text/html Patient is here for evaluation because she has not seen her menstrual period for 6 months after she stopped getting the Depo provera injection. Patient also complains that she has some symptoms that are suggestive of like fatigue and breast tenderness. test today was negative. Patient was informed that sometimes it takes up to 18 months after the last Depo provera dose for menses to return. Eda Robertson MD Attn: [address] [place], [address], [facility] 02/26/2017 16:52:13 OBGyn Episode No OBEpisode recorded.
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
--- OUTSIDE RECORDS SUMMARY | 2024-10-04 17:43 | XMS_ITS | Referral Summary ---
Author Organization [facility] Address [address] [place] [address] Care Team Providers Care Linux Unix System Administrator Name Role Phone Gerry Stockton MD Primary Care Provider Encounters Date Type Department Care Team Description 2024 [facility] [address] [place] [address] Grecia Bender MD Amenorrhea 07/24/2024 [facility] [address] [place] [address] Grecia Bender MD Patient issue/concern from Last 3 Months Allergies No known active allergies Medications sertraline [...] (12/05/2021): Added automatically from request for surgery [id number] Vaginal discharge during pre gnancy in third trimester 07/08/2020 10/18/2020 Previous delivery, antepartum condition or complication 06/10/2020 10/18/2020 Overview (06/10/2020): Added automatically from request for surgery [id number] Diet controlled gestational diabetes mellitus (GDM), antepartum 05/27/2020 10/18/2020 Previous delivery a ffecting 12/26/2019 10/18/2020 Overview (06/24/2020): Repeat scheduled 08/12 at noon. Immunizations Immunization Administration Dates Next Due Influenza, Quadrivalent, Spl it, Preservative Free, Intramuscular 01/24/2020,05/18/2018 Tdap 08/14/2020,05/18/2018 Social History Tobacco Use Types Packs/Day Years [...] on file Legal Sex Female 3:26 PM GRADUATE INTERNSHIP Gender Identity Female 04/26/2024 4:15 PM GR[employer]ATE INTERNSHIP Sexual Orientation Straight 06/02/2020 3: 08 PM GRADUATE INTERNSHIP Last Filed Vital Signs Vital Sign Reading Time Taken Comments Blood Pressure 120/82 03/09/2024 9:42 AM GRADUATE INTERNSHIP Pulse 89 08/14/2020 3:16 PM CDT Temperature 36.3 C (97.3 F) 09/02/2020 1:23 PM CDT Respiratory Rate 18 08/14/2020 3:16 PM CDT Oxygen Saturation 98% 08/14/2020 3:16 PM CDT Inhaled Oxygen Concentration - - Weight 103 kg (227 lb) 03/09/2024 9:42 AM GRADUATE INTERNSHIP Height 162.6 cm (5' 4) 03/01/2024 11:11 AM GRADUATE INTERNSHIP Body Mass Index 38.96 03/01/2024 11:11 AM GRADUATE INTERNSHIP Plan of Treatment Not on file Procedures Procedure Name Priority Date/Time Associated Diagnosis [...] Narrative PATHOLOGY CH - 02/24/2023 2:16 PM GRADUATE INTERNSHIP [facility] Department of Pathology [address] [place] [address] Final Report Note to Patients: This report [...] the details. Patient Name: ILENE CURRIE Address: [address] [place] [address] [place] [address] Gender: F : 1995 (Age: 27) Service: Location: N : [id number] [facility] #: [id number] Patient Type: SPECIMEN Taken: 02/19/2023 Received: 02/19/2023 Accessioned:: 02/22/2023 Reported: 02/24/2023 Physician(s): MD Grecia Aguilar MD Diagnosis: SOURCE OF SPECIMEN Imaged Thinprep Pap Test w/ Reflex HPV - Jeweler Apprentice Cytologic Material: STATEMENT OF ADEQUACY - Satisfactory for evaluation; endocervical/transformation zone component present GENERAL CATEGORIZATION: - Negative for intraepithelial lesion or malignancy JOSE Dalton(ASCP) Report Electronically Reviewed and Signed Out By JOSE Dalton(ASCP) 02/24/2023 14:16:20Specimen(s) Received: A: Imaged Thinprep Pap Test w/ Reflex HPV - Jeweler Apprentice Cytologic Material Clinical History: Menstrual History: Previous [...] determined by the Surgical Pathology Department at [facility] as part of an ongoing senior manager quality assurance program and in compliance with federally mandated [...] characteristics determined by the Surgical Pathology Department [facility]. It has not been cleared or approved by the U. S. Food and Drug Administration. Grecia Bender MD LAB CYTOLOGY ORDERABL ES Final Result Performing Organization Address [facility] Co de Phone Number [facility] [address] [place] [address] * Hepatitis C antibody (12/26/2019 10:51 AM CDT) Hep C Ab Nonreactive Nonreactive CASTRO RAMON Comment: Interpretive Data Nonreactive: Antibodies to [...] NERAL ORDERABLES Final Result Performing Organization Address [facility] de Phone Number [facility] [address] Department [place] [address] from Last 3 Months or Most Recently Relevant to Health Maintenance Insurance ANTHEM ACCESS CHOICE IDPA [facility] IDPA [facility] MEDICAID [facility] Advance Directives For more information, please contact: [phone] * Full Code (Latest Code Status on [...] in case of cardiopulmonary arrest Care Teams Linux Unix System Administrator Relationship Specialty Start Date End Date Gerry Stockton MD [address] [facility] [place] [place] [address] PCP - General 06/30/19
--- OUTSIDE RECORDS SUMMARY | 2024-10-04 17:43 | XMS_ITS | Clinical Summary ---
Author Organization [facility] Address [address] [place] [address] Phone Care Team Providers Care Bus Repair Supervisor Name Role Phone Provider, None Primary Care Provider Unavailabl e Allergies Active Allergy Reactions Criticality Noted Date Comments Amoxicillin Unknown 02/17/2016 Medications naproxen (NAPROSYN) 500 MG Tablet Take 1 Tab by mouth 2 times daily as needed for Pain. 30 Tab 0 7 Active Additional Information Patient not taking.Reported on 03/08/2024 traMADol (ULTRAM) 50 MG Tablet Take 1-2 Tabs by mouth every 6 hours as needed for Pain. 20 Tab 0 7 Active Additional Information Patient not taking.Reported on 03/08/2024 promethazine-de xtromethorphan (PROMETHAZINE-D M) 6.25-15 MG/5ML Syrup Take 5 mL by mouth every 6 hours as needed for Cough. 120 mL 8 Active Additional Information Patient not taking.Reported on 03/08/2024 Vit-Fe Fumarate-FA ( VITAMIN PO) Take by mouth. Act cammy guaiFENesin (ROBITUSSIN) 100 MG/5ML Solution Take 10 mL by mouth every 4 hours as needed for Cough. 240 mL 8 Active Additional Information Patient not taking.Reported on 03/08/2024 Active Problems No known active problems Social History Tobacco Use Types Packs/Day Years Used Date Smoking Tobacco: Never Smokeless Tobacco: Never Alcohol Use Standard Drinks/Week Comments No 0 (1 standard drink = 0.6 oz pur e alcohol) Sexually Active Control Partners Comments Yes Comments Unknown Sex and Gender Information Value Date Recorded Sex Assigned at Female 12/07/2023 4:00 PM CDT Legal Sex Female 12:21 AM CDT Gender Identity Female 12/07/2023 4:00 PM CDT Sexual Orientation Not on file Last Filed Vital Signs Vital Sign Reading Time Taken Comments Blood Pressure 140/84 03/08/2024 6:19 PM STRUCTURAL STEEL WORKER APPRENTICE Pulse 143 03/08/2024 6:19 PM STRUCTURAL STEEL WORKER APPRENTICE Temperature 38.1 C (100.5 F) 03/08/2024 6:19 PM STRUCTURAL STEEL WORKER APPRENTICE Respiratory Rate 18 03/08/2024 6:19 PM STRUCTURAL STEEL WORKER APPRENTICE Oxygen Saturation 98% 03/08/2024 6:19 PM STRUCTURAL STEEL WORKER APPRENTICE Inhaled Oxygen Concentration - - Weight 71.2 kg (157 lb) 12/21/2017 3:59 PM CDT Height 165.1 cm (5' 5) 12/21/2017 3:59 PM CDT Body Mass Index 26.13 12/21/2017 3:59 PM CDT Plan of Treatment Health Maintenance Due Date Last Done Comments Hepatitis C Virus (HCV) Screening 1995 Pap Smear 2018 SARS-COV-2 Immunization ( season) 2023 Influenza Immunization (Season Ended) 2024 01/24/2020, 05/18/2018, 01/17/2015 Respiratory Syncytial Virus (RSV) Immunization (Adult) (1 - 1-dose 75+ series) 2072 Hepatitis B Immunization Completed 998, [birth year] Meningococcal Immunization (ACWY) Completed 01/17/2015, 01/04/2012 Human Papillomavirus (HPV) Immunization Completed 08/31/2019, 11/03/2018, 09/02/2018, Additional history exists DTaP/Tdap/Td Immunization Discontinued 2020, 05/18/2018, 01/04/2012, Additional history exists TdaP Immunization Completed 08/14/2020, , 01/04/2012 Pneumococcal Immunization Combined Aged Out No longer eligible based on patient's age to complete this topic Rotavirus Immunization Aged Out No lo nger eligible based on patient's age to complete this topic Insurance [facility] MEDICAID [place] Care Teams Bus Repair Supervisor Relationship Specialty Start Date End Date Provider, None [place] PCP - General 05/25/17
--- OUTSIDE RECORDS SUMMARY | 2024-10-04 17:43 | XMS_ITS ---
Author Organization [facility] Address [address] [place] [address] Phone Care Team Providers Care Machine Deicer Element Winder Name Role Phone Provider, None Primary Care Provider Zee rod [facility] Status:Enrolled (Active) Start date:04/27/2024 Enrollment date:04/27/2024 Related social drivers of health:Intimate Partner Violence, Social Connections, Alcohol Use, Financial Resource Strain, Depression, Stress, Physical Activity, Food Insecurity, Transportation Needs, Housing Stability, Utilities Continued Care and Services Coordination
== END 2024-10-04 18:03 | disposition home or self-care (01) ==
PROVIDERS: Emergency Provider Nurse Practitioner
DX: M25.571 Pain in right ankle and joints of right foot (principal)
CPT/HCPCS: 73610; 99213; G0463